=== PATIENT | female | born 1955 | race Hispanic/Latino ===

== ENCOUNTER → 2022-09-26 | Outpatient (CLI) | payer OTHER | END | disposition home or self-care (01) | LOC: RAH 09:50 | PROVIDERS: ATTEND Physician Assistant | DX: M19.042 Primary osteoarthritis, left hand (principal); M79.645 Pain in left finger(s) | CPT/HCPCS: 73140 ==

== ENCOUNTER → 2022-10-12 | Outpatient (CLI) | payer OTHER | END | disposition home or self-care (01) | LOC: RAH 12:40 | PROVIDERS: ATTEND Internal Medicine | DX: Z12.31 Encounter for screening mammogram for malignant neoplasm of breast (principal) | CPT/HCPCS: 77067 ==

== ENCOUNTER → 2023-10-15 | Outpatient (CLI) | payer OTHER | END | disposition home or self-care (01) | LOC: RAH 11:31 | PROVIDERS: ATTEND Internal Medicine | DX: M47.22 Other spondylosis with radiculopathy, cervical region (principal); M47.26 Other spondylosis with radiculopathy, lumbar region; M47.814 Spondylosis without myelopathy or radiculopathy, thoracic region; M54.31 Sciatica, right side; M54.50 Low back pain, unspecified | CPT/HCPCS: 72040; 72070; 72100 ==

== ENCOUNTER → 2024-04-21 | Outpatient (CLI) | payer OTHER ==
--- NOTE | 2024-04-29 07:24 | HMCSR ---
APPROVED REPORT Bilateral Lower Extremity Venous Study for DVT., Venous Competence. Indications i87.1,i87.2 Vein Imaging CFV (R): Normal flow, augmentation and compression. No evidence of DVT. 11.6mm 0.0ms of reflux. SFJ (R): Normal flow, augmentation and compression. No evidence of DVT. FEM (R): Normal flow, augmentation and compression. No evidence of DVT. POP (R): Normal flow, augmentation and compression. No evidence of DVT. DFV (R): Normal flow, augmentation and compression. No evidence of DVT. PTV (R): Normal flow, augmentation and compression. No evidence of DVT. Peroneals (R): Normal flow, augmentation and compression. No evidence of DVT. CFV (L): Normal flow, augmentation and compression. No evidence of DVT. 8.9mm 494ms of reflux. SFJ (L): Normal flow, augmentation and compression. No evidence of DVT. FEM (L): Normal flow, augmentation and compression. No evidence of DVT. POP (L): Normal flow, augmentation and compression. No evidence of DVT. DFV (L): Normal flow, augmentation and compression. No evidence of DVT. PTV (L): Normal flow, augmentation and compression. No evidence of DVT. Peroneals (L): Normal flow, augmentation and compression. No evidence of DVT. Technologist Impression Deep veins of the bilateral lower extremities appear patent and compressible without thrombus. No deep venous reflux seen. Superficial venous insufficiency noted in the RGSV and LSSV. RGSV junction 5.5mm 361ms thigh 2.7mm 0.0ms knee 2.7mm 0.0ms calf 2.4mm 4128ms RSSV prox 1.2mm 0.0ms mid 2.3mm 0.0ms LGSV junction 5.5mm 283ms thigh 3.2mm 0.0ms knee 3.5mm 0.0mm calf 2.4mm 0.0ms LSSV prox 1.8mm 0.0ms mid 1.9mm 1522ms Conclusion Superficial venous insufficiency noted in the RGSV and LSSV. No DVT noted Moderate reflux recorded Clinical correlation recommended long Conclusion Superficial venous insufficiency noted in the RGSV and LSSV. No DVT noted Moderate reflux recorded Clinical correlation recommended long
--- NOTE | 2024-04-29 07:25 | HMCSR ---
APPROVED REPORT Bilateral Upper Extremity Venous Study for DVT. Indications r20.2 Vein Imaging IJV (L): Normal flow, augmentation and compression. No evidence of DVT. SCV (L): Normal flow, augmentation and compression. No evidence of DVT. Axillary (L): Normal flow, augmentation and compression. No evidence of DVT. Brachial (L): Normal flow, augmentation and compression. No evidence of DVT. Radial (L): Normal flow, augmentation and compression. No evidence of DVT. Ulnar (L): Normal flow, augmentation and compression. No evidence of DVT. IJV (R): Normal flow, augm entation and compression. No evidence of DVT. SCV (R): Normal flow, augmentation and compression. No evidence of DVT. Axillary (R): Normal flow, augmentation and compression. No evidence of DVT. Brachial (R): Normal flow, augmentation and compression. No evidence of DVT. Radial (R): Normal flow, augmentation and compression. No evidence of DVT. Ulnar (R): Normal flow, augmentation and compression. No evidence of DVT. Technologist Impression Deep veins of the bilateral upper extremities appear patent and compressible without thrombus. Conclusion No evidence of DVT Conclusion No evidence of DVT
== END | disposition home or self-care (01) ==
LOC: SHCH 13:58
PROVIDERS: ATTEND Internal Medicine Cardiovascular Disease
DX: I87.2 Venous insufficiency (chronic) (peripheral) (principal); R20.2 Paresthesia of skin
CPT/HCPCS: 93970

== ENCOUNTER → 2024-07-13 | Outpatient (CLI) | payer OTHER ==
[~2024-07-13] MED LIST: IOHEXOL 350 MG/ML 100ML INFUS..BTL IV ONE
--- NOTE | 2024-07-13 12:57 | HMCIMG ---
CT HEAD/BRAIN W/WO CONTRAST HISTORY: Dizziness and giddiness COMPARISON: None TECHNIQUE: Multiple sequential axial images of the head were obtained from the base of the skull through vertex. Patient was not given contrast through intravenous route. FINDINGS: The ventricles and extraventricular CSF spaces are nondilated for patient's age. There is no midline shift, mass effect or herniation. No acute intracranial bleed is seen. There is right sphenoid sinusitis with mucoperiosteal thickening. IMPRESSION: 1. No acute intracranial bleed is seen. CT was performed with one or more following dose reduction techniques: automated exposure control, adjustment of the mA and kv according to patient's size, or use of a iterative reconstruction technique.
--- NOTE | 2024-07-13 16:44 | HMCIMG ---
CT NECK SOFT TISSUE W/WO CONTR HISTORY: Dizziness and giddiness COMPARISON: None TECHNIQUE: Multiple sequential axial images of the soft tissue neck were obtained. Patient was given 50 cc of Omnipaque through intravenous route. FINDINGS: There is right sphenoid sinusitis. Visualized portion of brain parenchyma within the posterior fossa is within normal limits. Parapharyngeal fat planes are preserved bilaterally. Parotid glands and submandibular glands are grossly within normal limits. There are normal size cervical lymph nodes. The airway is patent. Visualized portion of the lung apices are unremarkable. There are degenerative changes of cervical spine spondylosis. Disc space narrowing associated at C3-4 through C6-7 levels. IMPRESSION: 1. No acute findings. DJD of cervical spine. CT was performed with one or more following dose reduction techniques: automated exposure control, adjustment of the mA and kv according to patient's size, or use of a iterative reconstruction technique.
== END | disposition home or self-care (01) ==
LOC: RAH 10:48
PROVIDERS: ATTEND Internal Medicine
DX: J32.3 Chronic sphenoidal sinusitis (principal); J34.89 Other specified disorders of nose and nasal sinuses; R42 Dizziness and giddiness; R55 Syncope and collapse; M47.812 Spondylosis without myelopathy or radiculopathy, cervical region; M48.02 Spinal stenosis, cervical region
CPT/HCPCS: 70470; 70492; Q9967

== ENCOUNTER → 2024-08-26 | Outpatient (CLI) | payer OTHER | END | disposition home or self-care (01) | LOC: RAH 13:16 | PROVIDERS: ATTEND Internal Medicine | DX: Z12.31 Encounter for screening mammogram for malignant neoplasm of breast (principal) | CPT/HCPCS: 77067 ==

== ENCOUNTER → 2024-09-15 | Outpatient (CLI) | payer OTHER ==
--- NOTE | 2024-09-16 08:57 | HMCIMG ---
Exam Type: MAMMO DX UNILATERAL LEFT, US BREAST COMPLETE UNILATERAL Clinical Information: ABN MAMMOGRAM Comparison: None TECHNIQUE: Mammogram was performed with spot compression views in the CC and ML projections. CAD was performed. CAD shows no worrisome regions. FINDINGS: The breasts are heterogeneously dense, which may obscure small masses.. Focus of the increased density right breast outer half is seen which upon spot compression views is proven to this spurs. Right breast also shows simple cyst 12:00 position, 5 mm. Retroareolar dilated ducts are seen and ultrasound shows no worrisome lesions. There is no nipple retraction or skin thickening. Benign-appearing calcifications are seen. IMPRESSION: 1. No mammographic or sonographic signs of malignancy.. 2. Routine follow-up recommended. BI-RADS: CATEGORY 2: BENIGN FINDINGS Note: A negative x-ray should not delay biopsy if a dominant or clinically suspicious mass is present, since 8-10% of cancers are not identified by mammography. Dense breasts, particularly, may obscure an underlying neoplasm.
== END | disposition home or self-care (01) ==
LOC: RAH 13:06
PROVIDERS: ATTEND Internal Medicine
DX: N63.20 Unspecified lump in the left breast, unspecified quadrant (principal); N60.01 Solitary cyst of right breast; N64.89 Other specified disorders of breast; R92.8 Other abnormal and inconclusive findings on diagnostic imaging of breast; R92.322 Mammographic fibroglandular density, left breast; R92.1 Mammographic calcification found on diagnostic imaging of breast
CPT/HCPCS: 76641; 77065

== ENCOUNTER → 2025-01-27 | Outpatient (CLI) | payer OTHER ==
--- NOTE | 2025-01-28 06:11 | HMCIMG ---
EXAMINATION: ULTRASOUND OF THE ABDOMEN WITH COLOR DOPPLER. CLINICAL HISTORY: Lower abdomen pain. COMPARISON: None. TECHNIQUE: Real-time grayscale ultrasound images of the abdomen. In addition, color Doppler is medically necessary to perform in order to evaluate vascularity and blood flow. FINDINGS: Liver: Normal in caliber, the right hepatic lobe measures 13.7 cm in the craniocaudal dimension. There is increased echogenicity of the hepatic parenchyma. There is no intrahepatic biliary ductal dilatation. There is normal spectral Doppler of the main portal vein. There are cysts that measure 1.2 x 1.3 x 1.4 cm and 0.9 x 0.6 x 0.8 cm in the left lobe. Gallbladder: Within normal limits with normal wall thickness (0.20 cm). No hyperemia or pericholecystic free fluid. There is no cholelithiasis. Common bile duct is normal in caliber, measuring 0.3 cm. Spleen is normal in caliber and measures 9.0 x 3.3 x 3.4 cm in craniocaudal, AP and transverse dimensions respectively. No focal lesions. Pancreas: Normal in caliber and echotexture. No calcification or dilated pancreatic duct. The kidneys are normal in caliber, the right kidney measures 10.7 x 5.8 x 4.6 cm and the left kidney measures 10.2 x 5.1 x 4.1 cm in craniocaudal, AP, and transverse dimensions respectively. There is normal renal cortical thickness, and cortical echogenicity. There is no renal calculus or hydronephrosis. The proximal, mid, and distal aspects of abdominal aorta are normal in caliber measuring 1.8 cm, 1.7 cm, and 1.4 cm in the AP dimension respectively. Visualized aspects of the inferior vena cava are unremarkable. IMPRESSION: Hepatic steatosis. Simple hepatic cysts. /[place]
== END | disposition home or self-care (01) ==
LOC: RAH 08:05
PROVIDERS: ATTEND Internal Medicine
DX: K76.0 Fatty (change of) liver, not elsewhere classified (principal); K76.89 Other specified diseases of liver; R10.30 Lower abdominal pain, unspecified
CPT/HCPCS: 76700